=== PATIENT | male | born 1995 | race Caucasian/White ===

== ENCOUNTER 2021-12-18 10:42 | Outpatient (CLI) | payer OTHER | END 2021-12-18 10:43 | disposition home or self-care (01) | LOC: BICMAMMO 10:42 | PROVIDERS: ATTEND Internal Medicine Transplant Hepatology | DX: Z13.820 Encounter for screening for osteoporosis (principal); K75.4 Autoimmune hepatitis; I85.00 Esophageal varices without bleeding; K74.69 Other cirrhosis of liver; M85.89 Other specified disorders of bone density and structure, multiple sites | CPT/HCPCS: 77080 ==

== ENCOUNTER 2022-11-10 13:37 | Outpatient (CLI) | payer BC | END 2022-11-10 13:38 | disposition home or self-care (01) | LOC: ULT 13:37 | PROVIDERS: ATTEND Physician Assistant | DX: Z41.8 Encounter for other procedures for purposes other than remedying health state (principal); R74.01 Elevation of levels of liver transaminase levels; K75.4 Autoimmune hepatitis; D72.819 Decreased white blood cell count, unspecified; I85.00 Esophageal varices without bleeding; K76.6 Portal hypertension; D69.6 Thrombocytopenia, unspecified; K74.69 Other cirrhosis of liver | CPT/HCPCS: 76700 ==